=== PATIENT | male | born 1960 | race Caucasian/White ===

== ENCOUNTER 2021-07-22 13:14 | Emergency (ER) | payer OTHER ==
[~2021-07-22] VITALS: Ht 177.8 cm; Wt 72.6 kg
[2021-07-22 19:30] VITALS: BP 128/77
[2021-07-22] MEDS ORDERED: LISINOPRIL10 MG PO (20:08)
== END 2021-07-22 19:30 ==
LOC: ER 13:14
PROVIDERS: Emergency Medicine
DX: R45.851 Suicidal ideations (principal); Z20.822 Contact with and (suspected) exposure to COVID-19; F32.9 Major depressive disorder, single episode, unspecified; Z88.0 Allergy status to penicillin; Z88.5 Allergy status to narcotic agent

== ENCOUNTER 2021-07-22 20:05 | Inpatient (IN) | payer OTHER ==
[~2021-07-22] VITALS: Ht 177.8 cm; Wt 64.9 kg
[2021-07-22] MEDS ORDERED: LISINOPRIL10 MG PO (20:08)
[2021-07-22 21:36] VITALS: BP 141/99
--- NOTE | 2021-07-23 02:30 | NUR ---
PATIENT ADMITTED ON 07/22/2021 AT 1943. WHEN TALKING WITH PATIENT IT BECAME OBVIOUS THAT PATIENT HAS NO LONG-TERM MEMORY AND SHORT-TERM IS ALSO COMPROMISED. PATIENT STATES HE CANNOT REMEMBER ANYTHING FROM HIS PAST EXCEPT HAVING A TBI BUT DOESN'T REMEMBER HOW HE GOT A TBI. PATIENT IS VERY IRRITABLE AND QUICK TO ANGER BELIEVING THERE ARE PEOPLE OUT THERE,(CANNOT TELL WHAT PEOPLE), THAT NEED TO GET HIM HOUSING. HE IS ALREADY UPSET WITH ONE PATIENT AND IF THIS PATIENT WHO IS CONFUSED, UPSETS HIM ANYMORE, HE STATED HE WAS GOING TO TAKE CARE OF SOME BUSINESS. PATIENT IS CONTINET OF BLADDER AND BOWEL, LOW FALL RISK AND IS MEDICATION COMPLIANT.
[2021-07-23 07:02] LABS: CHOLESTEROL 125 mg/dL (<200); HDL CHOLESTEROL 66 mg/dL (>40); LDL CHOLESTEROL 47 mg/dL (<100); TC:HDL 1.9 Ratio (Not establshd); TRIGLYCERIDE 62 mg/dL (<150); VLDL 12 mg/dL (<40)
[2021-07-23 09:49] VITALS: BP 137/95
[2021-07-23 09:50] VITALS: BP 139/96
--- NOTE | 2021-07-23 16:21 | NUR ---
ANAND and Dr. Reaves met with the Pt. Pt reported being homeless since 2018 between [place] and [place], [place]. Pt does have a TBI and recieves SSI. Pt reported being suicidial and wanting to by cops. Pt stated he is frustrated with living on the street. Pt grew up in [place], [place] with his mother. Pt has 2 sisters and 1 brother. Pt reported not being in contact with his family at this time. Pt reported using meth and drinking alchol. Pt denied having any outpatient mental health services at this time. When asked if he would be willing to participate in services after discharge? Pt stated " If I had a place to live I would". ANAND informed Pt that during this hospital stay permanent housing would not be able to be found. However placement at a homeless correction or halfway may be options. ANAND educated Pt about mental health CM in the community and the importance of PCP visits. ANAND encouraged Pt to reconsider participation in outpt services. ANAND will continue to follow.
--- NOTE | 2021-07-23 17:51 | NUR ---
Assumed pt care at 0700. Pt was alert and oriented to person, and time. Assessments completed, vss. Lungs clear, active bowel sounds. Denies si/hi. Denies pain. Took meds whole, no difficulty noted. Frustrated and irritable this shift. Ambulates with a steady gait. Ate all meals. No sign of acute distress upon assessments. Continent of bowel and bladder. Makes needs known to staff. Pt is currently in his room. Will continue to monitor.
[2021-07-23 19:56] VITALS: BP 125/81
[2021-07-23 23:05] LABS: GLYCOHEMOGLOBIN (HGB A1C) 4.8 % (4.8-5.6)
--- NOTE | 2021-07-24 02:02 | NUR ---
AT ONSET OF HOME INSPECTOR PT WAS SITTING ON HIS BED AWAKE. PT WAS ALERT AND ORIENTED X4. OVERALL PT WAS IRRITABLE AND COOPERATIVE. PT WAS FOCUSED ON GETTING HIS LAUNDRY BACK, WHICH HE DID, AND FOCUSED ON RECIEVING AN EXTRA ENSURE PROTEIN SHAKE WITH HIS EVENING SNACK. PT WAS COMPLIANT WITH VITAL SIGNS AND MEDICATIONS. WHEN ASKED WHAT BROUGHT HIM TO THE HOSPITAL PT WAS GUARDED WITH SENIOR PL SQL DEVELOPER AND STATED "I JUST NEEDED SOME HELP FIGURING SOME THINGS OUT." T DENIED SI, HI AND AVH. SPEECH WAS COHERENT AND AFFET WAS CONSTRICTED. PT IS NOT A FALL RISK BUT BED IS IN LOW POSITION AND NON-SKID SOCKS ARE IN PLACE. PT ASKED FOR MEDICATION TO HELP HIM SLEEP. RN EXPLAINED THE PT HAD HYDROXYZINE FOR ANXIETY. PT TOOK THE HYDROXYZINE STATING HE NEEDS TO RELAX TO FALL ASLEEP.
[2021-07-24 07:36] VITALS: BP 140/94
[2021-07-24 09:08] VITALS: BP 140/94
--- NOTE | 2021-07-24 10:28 | NUR ---
Assumed care from overnight shift this am. Client was in bed resting on side laying position. Client presented oriented 4x. Client denied any depression, anxiety, or suicidal and homicidal thoughts. Client denied having any visual or audio hallucinations. Client stated that he was doing well when asked if he was in pain. Normal lung sounds. Bowel sounds present. No wounds noted upon assessment. Pt was given medications, and stated that he was going back to bed. No further concerns at this time. Will continue to monitor for patient safety and concerns.
[2021-07-24 19:49] VITALS: BP 136/86
--- NOTE | 2021-07-24 21:18 | H ---
[facility] [place] [address] HISTORY AND PHYSICAL Name: FIOR MUHAMMAD Room #: 519A-A ADM IN M.R.#: [id number] Admission: 07/22/21 Attend Phys: Emery King DO Discharge: Date of : 58 Report #: [id number] THIS REPORT FOR: cc: NO FAMILY PHYSICIAN or PCP NO FAMILY PHYSICIAN or PCP Emery King DO ~ DATE OF SERVICE: 07/22/2021 INPATIENT PSYCHIATRIC EVALUATION ATTENDING PSYCHIATRIST: Emery King DO AIR CARRIER MAINTENANCE INSPECTOR: Zee Saenz APRN SOURCES OF INFORMATION: Records from [facility], interview with the patient, medical records from [facility]. CHIEF COMPLAINT: "I am homeless." HISTORY OF PRESENT ILLNESS: A 61-year-old male presented to [facility] yesterday. Attendants reported he had suicidal thoughts. He was quiet, withdrawn throughout assessment, but cooperative. He states he stays in local [employer] and he has had thoughts of suicide by copy center specialist and then he clarified during something that will get counselor at law to shoot the patient on the line of duty, it worsened over the last couple days. He states he does not have access to a gun on his own, so I do something to make the copy center specialist shoot me with the pistol. The patient denied homicidal ideation, auditory or visual hallucinations. He stated that he had been hospitalized in [place] in [place], [place], within the last 5 years for suicidal thoughts as well. He reports he has been homeless since 2019. He does admit to methamphetamine use and states he occasionally drinks. He actually denied drinking to me. Not currently in treatment, he attributes to his lack of housing. He was not familiar with local mental health centers and came to the ED because he states he wants medicines and treatment to help, the patient admits to being abused within the last 2 months. He states he smokes meth at times to stay up. He admits due to his homelessness, his sleep is erratic. He is positive for methamphetamines and amphetamines. His white count is 8.72, H and H 12.9 and 36, platelet count 244. Urine had trace ketones. Alcohol, negative. Sodium 141, potassium 4.1, chloride 107, bicarbonate 22, anion gap 12, calcium 9.9, glucose 101. Total serum protein 7.7, albumin 4.7, alkaline phosphatase 73, ALT 40, AST 36, total bilirubin 0.7, BUN 19, creatinine 0.9, and eGFR for male of non- is 86. Salicylate negative. Acetaminophen negative. REVIEW OF SYSTEMS: From [facility]: CONSTITUTIONAL: Negative for chills and fever. HEENT: Negative for rhinorrhea and sore throat. [facility] [address] [place] [address] HISTORY AND PHYSICAL Name: FIOR MUHAMMAD Room #: 519A-A ADM IN M.R.#: [id number] Admission: 07/22/21 Attend Phys: Emery King, DO Discharge: Date of : 58 Report #: [id number] EYES: Negative for pain or discharge. RESPIRATORY: Negative for cough and shortness of breath. CARDIOVASCULAR: Negative for chest pains and palpitations. GASTROINTESTINAL: Negative for nausea and vomiting. GENITOURINARY: Negative for dysuria and hematuria. MUSCULOSKELETAL: Negative for arthralgias and back pain. SKIN: Negative for rash. NEUROLOGIC: Negative for seizures and headaches. PSYCHIATRIC: Denied SI to me stating, he was homeless and needs help about him getting out of homless state. He was given lisinopril 20 mg b.i.d. for hypertension. His home medicine was also continued. He also is reportedly on Topamax 100 mg twice a day for seizures. At [place], A1c is pending. Triglycerides 60, cholesterol 125, LDL 47, HDL 66. ADDITIONAL HISTORY: He reports severe traumatic brain injury in 2003. He was in [facility] for several weeks in [place], [place]. He states that is why he is on disability. SOCIAL HISTORY: Denies abuse. 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 Reports 3 or 4 year x 2 of incarceration, does not give details. He denies being physically, sexually or emotionally abused. No children, never . PHYSICAL EXAMINATION: VITAL SIGNS: Temperature 36.7, pulse 65, respirations 18, BP 139/96, O2 sat 100%. GENERAL: Well-developed male appearing younger than stated age. MENTAL STATUS EXAMINATION: Well-developed male. Attention and concentration fair. Speech normal rate, volume, and tone. Thought process: Linear and goal directed. Thought content focused on housing. Denied SI, HI. mood/affect, constricted, irritable Denied auditory or visual type hallucinations. Some hopelessness. Denied helplessness. Memory not formally tested. Insight and judgment limited. Fund of knowledge is average. FORMULATION: A 61-year-old male who presented voluntarily, full code. BMI 20.5, weight 64.864 kilos, height 177.8 cm. DIAGNOSES: 1. Unspecified depression. [facility] [address] [place] [address] HISTORY AND PHYSICAL Name: FIOR MUHAMMAD Room #: 519A-A ADM IN M.R.#: [id number] Admission: 07/22/21 Attend Phys: Emery King DO Discharge: Date of : 58 Report #: [id number] 2. Substance abuse disorder of methamphetamine, mild degree. 3. History of traumatic brain injury. PLAN: The patient is voluntarily admitted to [facility]. The patient made multiple requests for benzodiazepines, which I declined and did start him on hydroxyzine pamoate 25 mg every 6 hours p.r.n. for acute anxiety, continue lisinopril 20 mg daily, topiramate 100 mg twice a day. I told the patient he will likely discharge Sunday or Sunday to homeless correction. STRENGTHS: He is insured. WEAKNESSES: Poor coping skills, homelessness. <ELECTRONICALLY SIGNED> By: Emery King DO 07/24/21 [id number] Emery Knig DO /nt
--- NOTE | 2021-07-24 23:45 | NUR ---
AT ONSET OF FLOORPERSON PT WAS SITTING IN HIS ROOM AWAKE. THIS SHIFT PT WAS ALERT AND ORIENTED X4. PT WAS OVERALL CALM AND COOPERATIVE. PT WAS COMPLIANT WITH HS MEDICATION AND REQUESTED HYDROXYZINE AT BEDTIME. PT EXPRESSED FRUSTRATION WITH THIS HOSPITALIZATION. WHEN ASKED ABOUT SI PT PROVIDED A GUARDED ANSWER STATING THE DOCTOR DOESN'T KNOW WHAT HE'S TALKING ABOUT AND DOESN'T UNDERSTAND THE PATIENT. RN ASKED PT IF RN COULD COMMUNICATE THE PT'S NEEDS TO THE DOCTOR AND PT RESPONDED "NO, THE PEOPLE INVOLVED KNOW WHAT I'M TALKING ABOUT." PT REQUESTED DOUBLE EVENING SNACK, WHICH WAS PROVIDED. PT ISOLATED TO HIS ROOM AND DID NOT SOCIALIZE WITH PEERS OR STAFF.
[2021-07-25 09:04] VITALS: BP 136/95
[2021-07-25 09:42] VITALS: BP 136/95
--- NOTE | 2021-07-25 11:39 | NUR ---
Assess due to nutrition screening risk for wt loss and inadequate intake prior admit. pt homeless for few years. Report of wt loss ~15 lb over undetermined time frame. Labs and meds reviewed. Pt eating 95-100% of all meals and will likely discharge from [facility] soon. On regular diet, able to voice needs. Low nutrition risk
--- NOTE | 2021-07-25 15:23 | NUR ---
Assumed care from overnight shift this am. Client was in room sleeping during this time, and was woken up for breakfast and assessment. Client presented oriented to self and place, but stated that he did not know what the date and month where. Client stated that he did not know what year it was. When asked about suicidal ideation, client stated "yeah, you know." Staff clarified that client did not have a plan at this time. Client denied homicidal ideation at this time. Client stated that he had some depression, but denied anxiety during assessment. Lung sounds were normal; bowel sounds present. Client showed staff boil at this time, denying pain, but stating that he would like treatment for it. During hospitalist rounds, Dr Guadalupe was informed of boil and topical solution was prescribed. Solution was ordered and administered at 1500. Client voiced no further concerns at this time. Will continue to monitor for safety and concerns.
--- NOTE | 2021-07-25 15:39 | NUR ---
07-25-2021--1430--Faxed information for patient to [facility]. Waiting for reply.
[2021-07-25 20:00] VITALS: BP 133/81
--- NOTE | 2021-07-26 02:57 | NUR ---
Assumed care on 08/05/21 @ 1900 cooperated with medication adm and assessment, VSS, A&Ox2 not oriented to date or situation. Requested second snack, ensure provided for nutrition. Retired to bed @ HS and slept well. Noted to be guarded but cooperative with this nurse. Requesting double portions for meals, aproval obtained from [facility]. Low fall risk, ambulates with a steady gait. Bed in low position, Bathroom light on, will continue to monitor for comfort and safety.
--- NOTE | 2021-07-26 08:03 | NUR ---
07-26-2021--0755--Refaxed information to [facility]. Waiting for reply.
[2021-07-26 09:53] VITALS: BP 149/87
--- NOTE | 2021-07-26 10:22 | NUR ---
07-26-2021--1020--Call to [facility] to check on information faxed to them yesterday ([phone]). Msg left for admissions with my name and number for a return call.
[2021-07-26 11:21] VITALS: BP 149/87
--- NOTE | 2021-07-26 12:18 | NUR ---
Chip was alert and oriented to self and time, but disoriented to place and situation. Pt believed that he was at a "resting house", and when asked why he was here pt stated "it's hard to explain". Pt was asked if he was having suicidal thoughts and pt responded "oh yeah that must've been it". Pt was evasive when answering current SI and if pt could contract for safety. Pt took a while to answer SI/safety questions and ultimately denied SI and contracted for safety. Pt was withdrawn and isolative to his room throughout the day, but did participate in morning group. He was medication compliant, without difficulty. He appeared confused and forgetful, and expressed "I don't know whether I'm pissed off I'm here and what they're telling me, or what", expressing somce frustration, but was otherwise appropriate. Pt was educated on the course of discharge planning and what to expect during his stay. Pt ambulates independently without difficulty and is not deemed a high fall risk at this time. Pt denied physical complaints throughout the day; will continue to monitor.
--- NOTE | 2021-07-26 14:55 | NUR ---
07-26-2021--1430--Call to [facility] to determine if the fax was received. Message left to return my call. Meeting with patient re: options. Resident was semi-beligerent and opposed to and had a reasom "why not" for suggestions given by the doctor or me. It was agreed the resident will be discharged tomorrow at 12:00. He will go to [facility] if they have returned my call and will accept him. Transportation will be provided. If they do not accept him (or call by 12:00 tomorrow), patient will discharge to [facility]; [address] Call made to them to determine what needs to be done. They stated check-in time is 3:30-4:30 and all he has to do is show up and sign in. [facility] will provide taxi transportation to the [facility].
[2021-07-26 19:58] VITALS: BP 127/69
--- NOTE | 2021-07-27 06:23 | NUR ---
07-26-21 CARE TRANSFERRED 1900 OBSERVED PT RESTING IN BED. LATER PT AAOX4, VSS, RR EVEN AND NONLABORED ON RA, PT DENIES SI/HI AND PAIN. PT PRESENTED CALM AND COOPERATIVE. DURING MEDICATION ADMIN, PT BECAME IRRITABLE AND WAS SHOUTING AT THIS PLASTER FORM MAKER, ABLE TO REDIRECTED AND PT CALM DOWN. LATER PT WAS CALM AND COOPERATIVE DURING COVID COLLECTION. PT WILL CONTINUE TO BE MONITOR PER [facility] PROTOCOL.
[2021-07-27 09:24] VITALS: BP 132/84
--- NOTE | 2021-07-27 09:26 | NUR ---
ANAND spoke with Sarah at [facility] concerning referral sent on Pt. They have denied the Pt due to recent Meth use. Sarah stated there would need to be a longer length of sobriety for Pt to be considered.
--- NOTE | 2021-07-27 09:29 | NUR ---
07-27-2021--9721--Call from [facility] stating she called [facility] and they will not accept him. Call to [facility] to RN to let her know he is coming. She stated just to send his DC paperwork with him. His name was provided. She said to send him over.
[2021-07-27] MEDS ORDERED: LISINOPRIL 20 MG TAB PO (09:33)
[2021-07-27] MEDS ORDERED: TOPIRAMATE 100100 MG PO (09:34)
[2021-07-27] MEDS ORDERED: SEROQUEL 50 MG50 MG PO (09:34)
[2021-07-27 09:39] VITALS: BP 132/84
[2021-07-27] MEDS ORDERED: MUPIROCIN22 GM TOP (09:39)
[2021-07-27 11:49] VITALS: BP 132/84
--- NOTE | 2021-07-27 12:30 | NUR ---
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 Security was going to escort pt but they were currently busy. Pt was escorted to the outpatient pharmacy and then to the emergency enterance where they met pt's ride, via Taxi. Pt was discharged to a homeless fdc and was discharged with all belongings. Pt was irritable and argumentative upon discharge but reponded well to education provided. Pt was given a copy of his negative Covid results from 07/27/21. Pt denied SI/HI/MALDONADO prior to discharge was was alert and oriented to self, time, and place, but disoriented to situation. Discharge summary was reviewed with pt, all questions answered.
--- NOTE | 2021-08-01 00:06 | D ---
[facility] [place] [address] DISCHARGE SUMMARY Name: FIOR MUHAMMAD Room #: 519A-A DIS IN M.R.#: [id number] Admission: 07/22/21 Attend Phys: Emery King DO Discharge: 07/27/21 Date of : 58 Report #: [id number] THIS REPORT FOR: cc: NO FAMILY PHYSICIAN or PCP NO FAMILY PHYSICIAN or PCP Emery King DO ~ DATE OF SERVICE: 07/27/2021 INPATIENT PSYCHIATRIC DISCHARGE SUMMARY ATTENDING PSYCHIATRIST: Emery King DO BURLAP BAG SEWER: Ubaldo Angeles MD DISCHARGE DIAGNOSES: 1. Unspecified depression, modest improvement. 2. Substance use disorder for amphetamines, methamphetamines, mild degree. 3. The patient also has history of severe traumatic brain injury. MEDICAL COMORBIDITIES: As follows: History of seizures and headache, hypertension. The patient is homeless. He is discharged to [facility]. Aftercare for this patient is limited by his ability to establish psychiatric care as well as medical care. DISCHARGE MEDICATIONS: As follows: Lisinopril 20 mg oral daily, htn, topiramate 100 mg oral twice daily #60 seizure/headache, Seroquel 50 mg q. 6 hours #15 p.r.n. anxiety, mupirocin cream 3 times daily for 14 more days or until resolution of boil on htigh. The patient had COVID-19 testing today both per protocol and per his request, which was negative. Laboratories on this admission were minimal, include A1c 4.8 and triglycerides 62, LDL 47, HDL 56. COVID-19 serology negative on 07/22, 07/25, and 07/27. REASON FOR ADMISSION: Back on 07/22, a 61 year old male transferred from [facility]. He allegedly had suicidal thoughts. He had been living in a local motel and had thought of suicide by manager endoscopy. HOSPITAL COURSE: The patient was admitted to Geriatric Psychiatry Unit from the [facility]. The patient was focused on obtaining housing, and he would easily become frustrated when topics were not on hosuing for him. Unfortunately, there were some COVID infectivity concerns on the unit during this admission. I think the patient reacted in a non productive way [address] [address] DISCHARGE SUMMARY Name: FIOR MUHAMMAD Room #: 519A-A [facility] IN ..#: [id number] Admission: 07/22/21 Attend Phys: Emery King DO Discharge: 07/27/21 Date of : 58 Report #: [id number] to this. The patient did not show any self-harm behavior on the unit. Denied SI, HI on the date discharge but we had maximized what we could do inpatient. Thus little was accomplished other than demonstrating he was not imminent harm to self or others. OBJECTIVE: VITAL SIGNS: Temperature 36.2, pulse 95, respirations 18, BP 132/84, O2 sat 100%. MUSCULOSKELETAL: Normal gait and station. MENTAL STATUS EXAMINATION: This is a well-developed, younger than age appearing male. Attention and concentration limited. Speech normal rate. Thought process: Linear and goal directed. Thought content, focused on housing. He had requested Klonopin 24 hours or so before discharge which was not given due to his substance use history. He is being positive for methamphetamines at [facility]. Denied SI, HI. Denies auditory or visual type hallucinations. Memory not formally tested. Mood and affect congruent, constricted. Insight and judgment limited and fund of knowledge below average. PROGNOSIS: For this patient is guarded given homelessness, drug use history and very limited participation in his own treatment and discharge planning. <ELECTRONICALLY SIGNED> By: Emery King DO 08/01/21 0006 [id number] Emery King DO /nt
== END 2021-07-27 12:00 | disposition home or self-care (01) | DRG 881 ==
LOC: SBH 20:05
PROVIDERS: ADMIT Psychiatry & Neurology Psychiatry; ATTEND Psychiatry & Neurology Psychiatry
DX: F32.A Depression, unspecified (principal); R45.851 Suicidal ideations; F41.9 Anxiety disorder, unspecified; I10 Essential (primary) hypertension; G40.909 Epilepsy, unspecified, not intractable, without status epilepticus; Z59.00 Homelessness unspecified; F15.10 Other stimulant abuse, uncomplicated; Z71.51 Drug abuse counseling and surveillance of drug abuser; Z88.0 Allergy status to penicillin; Z88.8 Allergy status to other drugs, medicaments and biological substances; F19.19 Other psychoactive substance abuse with unspecified psychoactive substance-induced disorder; Z87.820 Personal history of traumatic brain injury; Z20.822 Contact with and (suspected) exposure to COVID-19
CPT/HCPCS: 10880